=== PATIENT | female | born 1990 | race American Indian/Alaskan Native ===

== ENCOUNTER 2018-06-14 21:01 | Emergency (ER) | payer MEDICAID ==
[2018-06-14 21:08] VITALS: O2SAT 98
[2018-06-14] MEDS ORDERED: Sodium Chloride 0.9% 1,000 ML IV ONE (21:21)
[2018-06-14] MEDS ORDERED: Iodixanol 320 MG/ML 100 ML BOTTLE IV ONE (21:30)
[2018-06-14 21:42] LABS: BASO # 0.1 K/uL (0.0-0.2); BASO % 0.6 % (0.0-2.0); EOS # 0.2 K/uL (0.0-0.7); EOS % 2.3 % (0.0-4.0); HEMOGLOBIN 12.3 g/dL (11.0-16.0); LYMPH # 2.2 K/uL (1.0-4.3); LYMPH % 22.2 % (20.0-40.0); MEAN CORPUSCULAR HEMOGLOBIN 31.2 pg (27.0-31.0); MEAN CORPUSCULAR HGB CONC 34.3 g/dL (33.0-37.0); MEAN PLATELET VOLUME 7.1 fL (7.2-11.7); MONO # 0.5 K/uL (0.0-0.8); MONO % 5.5 % (0.0-10.0); NEUT # 6.8 K/uL (1.8-7.0); NEUT % 69.4 % (50.0-75.0); NRBC % 0.1 % (0.0-2.0); RBC 3.95 Mil/uL (3.80-5.20); RED CELL DISTRIBUTION WIDTH 14.1 % (11.5-14.5); WHITE BLOOD COUNT 9.8 K/uL (4.8-10.8)
[2018-06-14] MEDS ORDERED: Sodium Chloride 0.9% 1,000 ML ONE (21:43)
[2018-06-14 21:47] LABS: SQUAMOUS EPITHIAL 3 /hpf (0-5); URINE BACTERIA RARE (<OCC); URINE BILIRUBIN NEGATIVE (NEGATIVE); URINE BLOOD NEGATIVE (NEGATIVE); URINE CLARITY Clear (Clear); URINE COLOR Straw (YELLOW); URINE GLUCOSE (UA) NORMAL (Normal); URINE LEUKOCYTE ESTERASE TRACE Leu/uL (Negative); URINE PROTEIN NEGATIVE (NEGATIVE); URINE UROBILINOGEN NORMAL mg/dL (0.2-1.0)
[2018-06-14 22:11] LABS: ALB/GLOB RATIO 1.4 (1.0-2.1); ALBUMIN 4.2 g/dL (3.5-5.0); ALT/SGPT 13 U/L (9-52); AMYLASE 118 U/L (30-110); AST/SGOT 27 U/L (14-36); BLOOD UREA NITROGEN 18 mg/dL (7-17); CALCIUM 9.5 mg/dl (8.6-10.4); GFR NON-AFRICAN AMERICAN > 60; LIPASE 42 U/L (23-300)
[2018-06-15 00:01] VITALS: BP 112/70; PULSE 91; RESP 18; TEMP 98.1
--- NOTE | 2018-06-15 04:34 | C.PDOC ---
History Of Present Illness 28-year-old female presents to the ED for evaluation of abdominal pain which began last night. Patient states that she drank " a lot." She also reports some nausea, and states she noted some blood tinged in her vomitus. Patient denies fever, chills, or blood in stool. Time Seen by Provider: 06/14/18 21:10 Chief Complaint (Nursing): GI Problem History Per: Patient History/Exam Limitations: no limitations Onset/Duration Of Symptoms: Hrs Current Symptoms Are (Timing): Still Present Location Of Pain/Discomfort: Epigastric Quality Of Discomfort: "Pain" Associated Symptoms: Nausea, Vomiting. denies: Fever, Chills, Diarrhea Past Medical History Reviewed: Historical Data, Nursing Documentation, Vital Signs Vital Signs: Last Vital Signs Temp 98.1 F 06/14/18 23:55 Pulse 91 H 06/14/18 23:55 Resp 18 06/14/18 23:55 BP 112/70 06/14/18 23:55 Pulse Ox 98 06/14/18 21:06 - Medical History PMH: Asthma Surgical History: No Surg Hx Family History: States: Unknown Family Hx - Social History Hx Alcohol Use: Yes Hx Substance Use: No Review Of Systems Constitutional: Negative for: Fever, Chills Gastrointestinal: Positive for: Nausea, Vomiting, Abdominal Pain. Negative for: Diarrhea Physical Exam - Physical Exam Appears: Non-toxic, No Acute Distress Skin: Normal Color, Warm, Dry Head: Atraumatic, Normacephalic Eye(s): bilateral: Normal Inspection Oral Mucosa: Moist Neck: Supple Chest: Symmetrical, No Deformity, No Tenderness Cardiovascular: Rhythm Regular, No Murmur Respiratory: Normal Breath Sounds, No Rales, No Rhonchi, No Wheezing Gastrointestinal/Abdominal: Soft, Tenderness (epigastric ), No Guarding, No Rebound Extremity: Normal ROM, Capillary Refill (less than 2 seconds ) Neurological/Psych: Oriented x3, Normal Speech, Normal Cognition ED Course And Treatment - Laboratory Results Result Diagrams: 06/14/18 21:33 06/14/18 21:33 Lab Results: Total Bilirubin 0.9 mg/dL (0.2-1.3) 06/14/18 21:33 AST 27 U/L (14-36) 06/14/18 21:33 ALT 13 U/L (9-52) 06/14/18 21:33 Alkaline Phosphatase 53 U/L (38-126) 06/14/18 21:33 Total Protein 7.2 g/dL (6.3-8.3) 06/14/18 21:33 Albumin 4.2 g/dL (3.5-5.0) 06/14/18 21:33 Globulin 3.0 gm/dL (2.2-3.9) 06/14/18 21:33 Albumin/Globulin Ratio 1.4 (1.0-2.1) 06/14/18 21:33 Amylase 118 U/L (30-110) H 06/14/18 21:33 Lipase 42 U/L (23-300) 06/14/18 21:33 Urine Color Straw (YELLOW) 06/14/18 21:33 Urine Clarity Clear (Clear) 06/14/18 21:33 Urine pH 8.0 (5.0-8.0) 06/14/18 21:33 Ur Specific [place] 1.003 (1.003-1.030) 06/14/18 21:33 Urine Protein Negative mg/dL (NEGATIVE) 06/14/18 21:33 Urine Glucose (UA) Normal mg/dL (Normal) 06/14/18 21:33 Urine Ketones Negative mg/dL (NEGATIVE) 06/14/18 21:33 Urine Blood Negative (NEGATIVE) 06/14/18 21:33 Urine Nitrate Negative (NEGATIVE) 06/14/18 21:33 Urine Bilirubin Negative (NEGATIVE) 06/14/18 21:33 Urine Urobilinogen Normal mg/dL (0.2-1.0) 06/14/18 21:33 Ur Leukocyte Esterase Trace Tamara/uL (Negative) 06/14/18 21:33 Urine WBC (Auto) 3 /hpf (0-5) 06/14/18 21:33 Urine RBC (Auto) < 1 /hpf (0-3) 06/14/18 21:33 Ur Squamous Epith Cells 3 /hpf (0-5) 06/14/18 21:33 Urine Bacteria Rare (<OCC) 06/14/18 21:33 O2 Sat by Pulse Oximetry: 98 (on RA) Pulse Ox Interpretation: Normal - CT Scan/US CT A/P Other Rad Studies (CT/US): Read By Radiologist, Radiology Report Reviewed CT/US Interpretation: EXAM: CT Abdomen and Pelvis with IV contrast. CLINICAL HISTORY: Upper abd pain. TECHNIQUE: Axial computed tomography images of the abdomen and pelvis with intravenous contrast. 0.00 mGy-cm. CONTRAST: With; 100MLS VISI 320. COMPARISON: None provided. FINDINGS: LUNG BASES: The lung bases appear clear. No pleural effusions are seen. LIVER: Unremarkable. GALLBLADDER AND BILE DUCTS: The gallbladder appears within normal limits. No radioopaque gallstones are seen. No biliary ductal dilatation is evident. PANCREAS: Unremarkable. SPLEEN: Unremarkable. ADRENAL GLANDS: Unremarkable. KIDNEYS, URETERS, AND BLADDER: The kidneys appear within normal limits. There is no hydronephrosis or hydroureter. No urinary calculi are seen. The urinary bladder appeared normal in size and configuration. STOMACH AND BOWEL: Unremarkable appearance of the stomach. There is mild mucosal wall thickening of the ileal small intestinal tract with fluid in the lumen thought compatible with ileitis. Infectious or inflammatory etiologies are thought most likely.No evidence of bowel obstruction. No evidence suggesting colitis. APPENDIX: No evidence of acute appendicitis on CT examination. PERITONEUM: No free fluid. No free air. LYMPH NODES: No lymphadenopathy is evident. REPRODUCTIVE: Bilateral parauterine varices are noted; more prevalent on the right. The possibility of pelvic congestion syndrome should be considered. VASCULATURE: No evidence of abdominal aortic aneurysm. SOFT TISSUES: In the posterior buttocks region there is subcutaneous stranding and numerous nodules scattered throughout the subcutaneous soft tissues. These findings could be compatible with cellulitis and pilomatricomas, or possibly granulomata. BONES: No aggressive appearing osseous lesion. No acute osseous pathology evident. IMPRESSION: 1. Evidence of ileitis. 2. 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 The possibility of pelvic congestion syndrome should be considered. 3. Subcutaneous stranding of the buttocks bilaterally with numerous tiny nodules scattered throughout this region. Findings could be c ompatible with cellulitis and pilomatricomas, or possibly granulomata. Medical Decision Making Medical Decision Making: Bloodwork, urinalysis, CT A/P ordered and reviewed. Pepcid IVP, Zofran IVP and IV Fluids given. On reassessment, patient is resting comfortably, showing no signs of distress and reports an improvement in her symptoms. Patient is stable for discharge and is advised to f/u with her PMD within 1-2 days for further evaluation. Disposition - Disposition Referrals: [facility] [Outside] [facility] [Outside] Disposition: HOME/ ROUTINE Disposition Time: 23:35 Condition: IMPROVED Additional Instructions: PARI LOONEY, thank you for letting us take care of you today. The emergency medical care you received today was directed at your acute symptoms. If you were prescribed any medication, please fill it and take as directed. It may take several days for your symptoms to resolve. Return to the Emergency Department if your symptoms worsen, do not improve, or if you have any other problems. Please contact your doctor or call one of the physicians/clinics you have been referred to that are listed on the Patient Visit Information form that is included in your discharge packet. Bring any paperwork you were given at discharge with you along with any medications you are taking to your follow up visit. Our treatment cannot replace ongoing medical care by a primary care provider outside of the emergency department. Thank you for allowing the [facility] team to be part of your care today. Follow up with our clinic this week for re-evaluation and further management. Prescriptions: Famotidine [Pepcid] 20 mg PO DAILY #14 tab Instructions: Gastritis (DC) Forms: [employer] ([place] Verdean) - Clinical Impression Clinical Impression: Alcoholic gastritis - Scribe Statement The provider has reviewed the documentation as recorded by the Scribe (Marla Allison) Provider Attestation: All medical record entries made by the Scribe were at my direction and personally dictated by me. I have reviewed the chart and agree that the record accurately reflects my personal performance of the history, physical exam, medical decision making, and the department course for this patient. I have also personally directed, reviewed, and agree with the discharge instructions and disposition.
--- NOTE | 2018-06-15 11:29 | CT ---
Date of service: 06/14/2018 PROCEDURE: CT Abdomen and Pelvis with contrast HISTORY: upper abdominal pain COMPARISON: None available. TECHNIQUE: Contrast dose: 100 mL Visipaque 320 IV Radiation dose: Total exam DLP = 730.85 mGy-cm. This CT exam was performed using one or more of the following dose reduction techniques: Automated exposure control, adjustment of the mA and/or kV according to patient size, and/or use of iterative reconstruction technique. FINDINGS: LOWER THORAX: No visible consolidation, pleural effusion, or pneumothorax. LIVER: Unremarkable. GALLBLADDER AND BILE DUCTS: Unremarkable. PANCREAS: Unremarkable. SPLEEN: Unremarkable. ADRENALS: Unremarkable. KIDNEYS AND URETERS: The kidneys enhance symmetrically. No hydronephrosis or obstructing calculus identified. VASCULATURE: No aortic aneurysm. No atherosclerotic calcification or mural plaque present. BOWEL: Stomach is nondistended. Lack of oral contrast limits evaluation for bowel pathology. Bowel loops appear within normal limits of caliber without evidence of obstruction. APPENDIX: No secondary signs of acute appendicitis. PERITONEUM: No significant free fluid. No definite free air. LYMPH NODES: No bulky adenopathy identified. BLADDER: Mildly thick-walled urinary bladder. REPRODUCTIVE: The uterus is present. Prominent pelvic vasculature, right greater than left; correlate clinically for possibility of pelvic congestion syndrome. BONES: No acute osseous abnormality is detected. OTHER FINDINGS: Subcutaneous soft tissue nodules of the buttocks. IMPRESSION: Prominent pelvic vasculature, right greater than left; correlate clinically for possibility of pelvic congestion syndrome. Subcutaneous soft tissue nodules bilateral buttocks. Preliminary impression was provided by [employer].
== END 2018-06-15 00:02 | disposition home or self-care (01) ==
LOC: C.ER 21:01
DX: K29.20 Alcoholic gastritis without bleeding (principal)
CPT/HCPCS: 74177; 80053; 81001; 81025; 82150; 83690; 85025; 96361; 96374; 96375; 99284; J2405; J7030; Q9967

== ENCOUNTER 2018-06-15 09:09 | Inpatient (IN) | payer MEDICAID ==
--- NOTE | 2018-06-15 09:18 | C.PDOC ---
Time Seen by Provider: 06/15/18 09:16 Past Medical History - Medical History PMH: Asthma Family History: States: Unknown Family Hx - Social History Hx Alcohol Use: Yes Hx Substance Use: No Progress - Data Reviewed Data Reviewed: Old records
[2018-06-15 09:26] VITALS: BMI 24.2
[2018-06-15] MEDS ORDERED: Sodium Chloride 0.9% 2,000 ML IV ONE (09:32)
--- NOTE | 2018-06-15 09:32 | C.PDOC ---
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 SP CHED EVAL DC 2330 06/14. PS FEELING FINE UNTIL AWOKE THIS MORNING. SX WORSE WHEN STANDS UP OR SITS UP. NEAR SYNCOPE. NO ASSOC NV, ABD PAIN. SP LABS urinalysis, CT A/P. NEG PREG. EXAM MILD DIST SBP 96. REPRODUCIBLE DIZZY W POSITION CHANGE HEENT NO NYSTAGMUS ANICERTIC ABD SOFT NT ND NO R/G NEURO NO FOCAL DEF REMAINDER NEG Time Seen by Provider: 06/15/18 09:16 Chief Complaint (Nursing): Dizziness/Lightheaded History Per: Patient History/Exam Limitations: no limitations Onset/Duration Of Symptoms: Hrs Current Symptoms Are (Timing): Still Present Severity: Moderate Past Medical History Reviewed: Historical Data, Nursing Documentation, Vital Signs - Medical History PMH: Asthma Surgical History: Family History: States: No Known Family Hx - Social History Hx Alcohol Use: Yes Hx Substance Use: No Review Of Systems Except As Marked, All Systems Reviewed And Found Negative. Constitutional: Negative for: Fever, Chills Cardiovascular: Negative for: Chest Pain Respiratory: Negative for: Shortness of Breath Gastrointestinal: Negative for: Nausea, Vomiting, Abdominal Pain Neurological: Positive for: Dizziness Physical Exam - Physical Exam Appears: Other (mild distress, SBP 96, reproducible dizziness with position change) Skin: Normal Color, Warm, Dry Head: Atraumatic, Normacephalic Eye(s): bilateral: Normal Inspection, Other (anicertic, no nystagmus) Nose: Normal Oral Mucosa: Moist Cardiovascular: Rhythm Regular Respiratory: Other (NARD) Gastrointestinal/Abdominal: Soft, No Tenderness, No Guarding, No Rebound Neurological/Psych: Other (no focal deficits) ED Course And Treatment - Laboratory Results Result Diagrams: 06/15/18 13:25 ECG: Interpreted By Me ECG Rhythm: Sinus Rhythm ECG Interpretation: Normal Rate From EC O2 Sat by Pulse Oximetry: 99 Pulse Ox Interpretation: Normal Progress - Re-Evaluation Re-evaluation Note: 06/15/18 12:24 RECUR NV. +BM X 1, BLACK. "BLACK LIKE WHEN I WAS VOMITING YESTERDAY". NO ABD, RECTAL PAIN. DENIES RECENT PEPTOBISMOL, IRON USE. ABD NEG. NO HEMORRHOIDS, GROSS BRB. GUIAC PENDING 06/15/18 14:02 NO RECUR GI BLEED SINCE PRIOR EVAL. SBP 96. NO PAIN D/W DR PERRY [employer]EL[employer] WILL ADMIT. WILL TRANSFUSE - Data Reviewed Data Reviewed: Lab, EKG, Old records - Critical Care Citical Care: Excluding Proc Time Critical Care Time: 60 minutes Medical Decision Making Medical Decision Making: Plan: --Antivert PO --IV Fluids Disposition Counseled Patient/Family Regarding: Studies Performed, Diagnosis - Disposition Disposition: HOSPITALIZED Disposition Time: 14:03 Condition: SERIOUS - POA Present On Arrival: None - Clinical Impression Clinical Impression: Near syncope, GI bleed, Symptomatic anemia - Scribe Statement The provider has reviewed the documentation as recorded by the Charuibe Shine Mendez Provider Attestation: All medical record entries made by the Scribe were at my direction and personally dictated by me. I have reviewed the chart and agree that the record accurately reflects my personal performance of the history, physical exam, medical decision making, and the department course for this patient. I have also personally directed, reviewed, and agree with the discharge instructions and disposition.
[2018-06-15 13:33] LABS: LYMPH # 1.2 K/uL (1.0-4.3); MONO # 0.3 K/uL (0.0-0.8); RBC 2.23 Mil/uL (3.80-5.20); RED CELL DISTRIBUTION WIDTH 13.8 % (11.5-14.5)
[2018-06-15 13:39] LABS: BASO % 0.4 % (0.0-2.0); EOS % 0.4 % (0.0-4.0); LYMPH % 16.1 % (20.0-40.0); MEAN CORPUSCULAR HEMOGLOBIN 31.8 pg (27.0-31.0); MEAN CORPUSCULAR HGB CONC 33.8 g/dL (33.0-37.0); MEAN PLATELET VOLUME 7.6 fL (7.2-11.7); MONO % 3.8 % (0.0-10.0); NEUT # 6.1 K/uL (1.8-7.0); NEUT % 79.3 % (50.0-75.0); WHITE BLOOD COUNT 7.7 K/uL (4.8-10.8)
[2018-06-15 13:47] LABS: HEMOGLOBIN 7.1 g/dL (11.0-16.0); MEAN CELL VOLUME 94.2 fL (81.0-99.0)
--- NOTE | 2018-06-15 15:14 | CP.PCM.HP ---
History of Present Illness - History of Present Illness History of Present Illness: Patient seen and examined at approximately 15:15PM in ER Bed 2. Patient is a FULL CODE status at this time. Patient's emergency contacts are her sisters: Kerri Simmons [phone] as well as Nury Esquivel [phone]. CC: Feeling lightheaded HPI: 28 year old female with past medical history significant for asthma presents with complaints of feeling lightheaded and general malaise. Patient initially presented to the ER one night previously with complaints of hematemesis the afternoon prior. Patient states that she drank 5-6 shots of Adonay High Friday night (two nights prior) and felt fine afterwards. Patient states that she normally drinks this amount- and sometimes more without adverse effects. She states that the following day (Friday), she woke up around 11:30am with the urge to vomit. She states that she did and then noticed bright red blood. She states that this continued through the afternoon with the color of the contents worsening- becoming coffee ground in color. This was witnessed by the father of her child who lives with her. Patient states that she was feeling increasingly worse which led her to the ER the first time (one night ago). Patient was administered antiemetics, fluids and pepcid with improvement. While there, patient had a workup with limited findings. With noted improvement, she was discharged home. Patient states that she returned around 8am this morning because she felt incredibly lightheaded this morning while on her way to use the bathroom. Patient states that the hematemesis ceased altogether. EMS services were notified and patient was brought to the ER. While in the ER, patient's labs were rechecked with a noted drop in her Hgb. Patient admits to nausea, headaches and lightheadedness. Patient denies current vomiting, abdominal pain, chest pain, palpitations, or paresthesias at this time. Past Medical History: Asthma, Gastritis secondary to increased NSAID use several years ago Past Surgical history: section July 2017 Family History: Mom has asthma and HTN; Uncle has DM Medications: Albuterol PRN Social History: Smokes 7 cigarettes- for the past 4 years; Drinks 1 pint a week; Denies illicit drug use. Does not currently work Allergies- Morphine and codeine result in anaphylaxis. Patient states that she has allergies to other medications however she cannot specifically recall which medications. She admits to pruritus. She denies anaphylaxis occurring with these other medications. Present on Admission - Present on Admission Any Indicators Present on Admission: No Review of Systems - Constitutional Constitutional: Headache, Weakness. absent: Increased Appetite - EENT Eyes: absent: Change in Vision, Pain Ears: absent: Ear Discharge, Ear Pain - Cardiovascular Cardiovascular: absent: Chest Pain, Chest Pain at Rest, Dyspnea - Respiratory Respiratory: absent: Cough, Dyspnea - Gastrointestinal Gastrointestinal: Change in Stool Character, Melena, Nausea. absent: Bloating, Diarrhea, Vomiting - Genitourinary Genitourinary: absent: Change in Urinary Stream, Difficulty Urinating, Dysuria, Urinary Frequency - Reproductive: Female Reproductive:Female: Normal Menses. absent: Amenorrhea, Heavy Menses - Musculoskeletal Musculoskeletal: absent: Back Pain, Stiffness, Tingling - Integumentary Integumentary: absent: Changing Lesions, Wounds - Neurological Neurological: Headaches, Weakness - Psychiatric Psychiatric: absent: Anxiety, Confusion, Depression - Hematologic/Lymphatic Hematologic: absent: Easy Bleeding, Easy Bruising, Lymphadenopathy Past Patient History - Infectious Disease Hx of Infectious Diseases: None - Past Social History Smoking Status: Light Smoker < 10 Cigarettes Daily Alcohol: Social Drugs: Denies Home Situation {Lives}: With Family, Friends - PULMONARY Hx Asthma: Yes - PSYCHIATRIC Hx Substance Use: No - SURGICAL HISTORY Hx Section: Yes - ANESTHESIA Hx Anesthesia: Yes Hx Anesthesia Reactions: No Meds Allergies/Adverse Reactions: Allergies Allergy/AdvReac Type Severity Reaction Status Date / Time codeine Allergy Verified 06/15/18 09:23 morphine Allergy Verified 06/15/18 09:23 Physical Exam - Constitutional Appears: Non-toxic, No Acute Distress - Head Exam Head Exam: ATRAUMATIC, NORMAL INSPECTION, NORMOCEPHALIC - Eye Exam Eye Exam: EOMI, Normal appearance, PERRL. absent: Scleral icterus Pupil Exam: NORMAL ACCOMODATION, PERRL - ENT Exam ENT Exam: Mucous Membranes Moist, Normal Exam - Neck Exam Neck exam: Positive for: Full Rom. Negative for: Lymphadenopathy - Respiratory Exam Respiratory Exam: NORMAL BREATHING PATTERN. absent: Rales, Wheezes - Cardiovascular Exam Cardiovascular Exam: +S1, +S2. absent: Systolic Murmur - GI/Abdominal Exam GI & Abdominal Exam: Normal Bowel Sounds, Soft. absent: Diminished Bowel Sounds, Distended, Firm, Guarding, Pulsatile Mass, Rebound, Rigid, Tenderness - Rectal Exam Rectal Exam: NORMAL INSPECTION. absent: Hemorrhoids - Expanded Rectal Exam Expanded Expanded Rectal Exam: NORMAL RECTAL TONE (No stool noted. No visible blood noted.) - Extremities Exam Extremities exam: Positive for: full ROM, normal capillary refill, pedal pulses present. Negative for: pedal edema Additional comments: pallor noted on the volar surface of palms - Back Exam Back exam: FULL ROM - Neurological Exam Neurological exam: Alert, Oriented x3 - Psychiatric Exam Psychiatric exam: Normal Affect, Normal Mood - Skin Skin Exam: Dry, Pallor (volar surface of palms), Warm Results - Vital Signs Recent Vital Signs: Last Vital Signs Temp 99.2 F 06/15/18 14:54 Pulse 80 06/15/18 14:54 Resp 16 06/15/18 14:54 BP 105/55 L 06/15/18 14:54 Pulse Ox 99 06/15/18 15:04 - Labs Result Diagrams: 06/15/18 20:50 Labs: Laboratory Results - last 24 hr 06/15/18 06/15/18 06/15/18 12:24 13:25 14:16 WBC 7.7 RBC 2.23 L Hgb 7.1 L D Hct 21.0 L MCV 94.2 D MCH 31.8 H MCHC 33.8 RDW 13.8 Plt Count 189 MPV 7.6 Neut % (Auto) 79.3 H Lymph % (Auto) 16.1 L [place] % (Auto) 3.8 Eos % (Auto) 0.4 Baso % (Auto) 0.4 Neut # (Auto) 6.1 Lymph # (Auto) 1.2 [place] # (Auto) 0.3 Eos # (Auto) 0.0 Baso # (Auto) 0.0 Stool Occult Blood Positive H Blood Type O POSITIVE Antibody Screen Negative Assessment & Plan (1) GI bleed Assessment and Plan: Several bouts of hematemesis as well as coffee ground black stools Resulting in symptomatic anemia Drop in Hgb from 12.3 to 7.1 Positive stool occult No further bouts of hematemesis. Transfuse 2 units of PRBC Check CBC at 20:00 and then in AM Monitor for adverse effects or transfusion reaction in light of allergies. Will hold off on starting protonix; however consider beginning in the AM pending CBC and GI recommendations Consult to GI, Dr. Carreon- F/U recommendations Once stabilized, patient will benefit from endoscopy Status: Acute (2) Near syncope Assessment and Plan: Likely secondary to repeated bouts of hematemesis as well as episode of melena resulting in symptomatic anemia Patient with drop in Hgb from 12.3 to 7.1. To transfuse x 2 units PRBC Recheck CBC Q4H (following transfusions) Fall Risk protocol Monitor Status: Acute (3) Prophylactic measure Assessment and Plan: SCDs PPI of consideration for AM Status: Acute - Assessment and Plan (Free Text) Assessment: Discussed with attending, Dr. Nam. Orders and management per Dr. Nam.
[2018-06-15 18:05] LABS: INR 1.1; PROTHROMBIN TIME 12.2 SECONDS (9.7-12.2)
[2018-06-15] MEDS ORDERED: DiphenhydrAMINE 50 mg/ml Inj IVP ONE ×2 (19:36→22:30)
[2018-06-15 20:58] LABS: BASO % 0.5 % (0.0-2.0); EOS # 0.1 K/uL (0.0-0.7); HEMOGLOBIN 8.7 g/dL (11.0-16.0); LYMPH # 2.5 K/uL (1.0-4.3); LYMPH % 29.3 % (20.0-40.0); MEAN CELL VOLUME 92.4 fL (81.0-99.0); MEAN CORPUSCULAR HEMOGLOBIN 30.9 pg (27.0-31.0); MEAN CORPUSCULAR HGB CONC 33.4 g/dL (33.0-37.0); MEAN PLATELET VOLUME 7.3 fL (7.2-11.7); MONO # 0.5 K/uL (0.0-0.8); MONO % 5.9 % (0.0-10.0); NEUT # 5.4 K/uL (1.8-7.0); NEUT % 63.3 % (50.0-75.0); RBC 2.83 Mil/uL (3.80-5.20); RED CELL DISTRIBUTION WIDTH 15.1 % (11.5-14.5); WHITE BLOOD COUNT 8.6 K/uL (4.8-10.8)
[2018-06-15] MEDS ORDERED: MethylPREDNISolone 40 mg Vial IVP STA (23:00)
[2018-06-16 06:30] LABS: BASO % 0.1 % (0.0-2.0); HEMOGLOBIN 10.5 g/dL (11.0-16.0); LYMPH # 0.6 K/uL (1.0-4.3); LYMPH % 7.9 % (20.0-40.0); MEAN CORPUSCULAR HGB CONC 33.7 g/dL (33.0-37.0); MEAN PLATELET VOLUME 7.4 fL (7.2-11.7); MONO % 0.4 % (0.0-10.0); NEUT # 7.4 K/uL (1.8-7.0); NEUT % 91.6 % (50.0-75.0); PLATELET COUNT 200 K/uL (130-400); RBC 3.37 Mil/uL (3.80-5.20); RED CELL DISTRIBUTION WIDTH 14.9 % (11.5-14.5)
[2018-06-16 07:31] LABS: ALB/GLOB RATIO 1.4 (1.0-2.1); ALBUMIN 3.4 g/dL (3.5-5.0); ALT/SGPT 11 U/L (9-52); AST/SGOT 24 U/L (14-36); BLOOD UREA NITROGEN 16 mg/dL (7-17); CALCIUM 8.9 mg/dl (8.6-10.4); GFR NON-AFRICAN AMERICAN > 60
[2018-06-16 08:57] LABS: LYMPHOCYTE 10 % (20-40); MONOCYTE 2 % (0-10); NEUTROPHIL 93 % (50-75); TOTAL CELLS COUNTED 100
[2018-06-16 08:58] LABS: ANISOCYTOSIS SLIGHT; HYPOCHROMIC SLIGHT; PLATELET ESTIMATE NORMAL (NORMAL); POIKILOCYTOSIS SLIGHT
--- NOTE | 2018-06-16 11:15 | CP.PCM.PCO ---
Subjective - Physician Review Subjective (Free Text): 06/16/18 11:12 PGY6 GI Fellow Note Patient was seen and examined prior to scheduled procedure this morning. Patient was brought to endoscopy for EGD but serum hCG noted to be positive and thus procedure was cancelled. Patient states she has an on 05/10/18 but cannot provide name of clinic/information of clinic in order to confirm details. Offered to perform EGD with only local sedation of the pharnyx/throat but patient will only perform EGD if performed with deep sedation (propofol). As such, the procedure will be cancelled. Discussed with anesthesia (Dr Chaudhari), GI attending (Lauri) and patient.
--- NOTE | 2018-06-16 12:16 | CP.PCM.PN ---
Subjective - Date & Time of Evaluation Date of Evaluation: 06/16/18 Time of Evaluation: 09:00 - Subjective Subjective: PGY-[address] Nam service Patient is seen and examined at bedside. Patient states has not had a new episode of bloody emesis. patient has not had bowel movement yet and does not know if she continues having blood in BM. Patient states feeling a gnawing pain in epigastric area, denies fever, chills, chest pain, sob, n/v or urinary complaints. Patient mentioned today had a termination of on May 10, patient had two months of conception. Previously, patient did not recall had as patient was overwhelmed with personal issues, patient states had her period may 29. Patient B-HCG done prior to endoscopy was elevated, patient did not wanted to do endoscopy with local sedation, EGD was cancelled at this time. Objective - Vital Signs/Intake and Output Vital Signs (last 24 hours): Temp Pulse Resp BP Pulse Ox 98 F 79 20 107/63 97 06/16/18 08:05 06/16/18 08:05 06/16/18 08:05 06/16/18 08:05 06/16/18 08:05 Intake and Output: 06/16/18 06/16/18 06:59 18:59 Intake Total 410 Balance 410 - Medications Medications: Current Medications Ondansetron HCl (Zofran Inj) 4 mg IVP Q6H PRN PRN Reason: Nausea/Vomiting Pantoprazole Sodium (Protonix Inj) 40 mg IVP Q12H MARYANA Last Admin: 06/16/18 06:50 Dose: 40 mg - Labs Labs: 06/16/18 06:19 06/16/18 06:19 PT 12.2 SECONDS (9.7-12.2) 06/15/18 17:50 INR 1.1 06/15/18 17:50 APTT 22 SECONDS (21-34) 06/15/18 17:50 - Constitutional Appears: Non-toxic, No Acute Distress - Head Exam Head Exam: ATRAUMATIC, NORMAL INSPECTION, NORMOCEPHALIC - Eye Exam Eye Exam: EOMI, Normal appearance - ENT Exam ENT Exam: Mucous Membranes Moist, Normal Exam - Neck Exam Neck Exam: Normal Inspection - Respiratory Exam Respiratory Exam: Clear to Ausculation Bilateral, NORMAL BREATHING PATTERN - Cardiovascular Exam Cardiovascular Exam: REGULAR RHYTHM - GI/Abdominal Exam GI & Abdominal Exam: Soft. absent: Tenderness - Extremities Exam Extremities Exam: Full ROM - Back Exam Back Exam: NORMAL INSPECTION - Neurological Exam Neurological Exam: Alert, Awake - Psychiatric Exam Psychiatric exam: Normal Affect, Normal Mood - Skin Skin Exam: Dry, Normal Color, Warm Assessment and Plan - Assessment and Plan (Free Text) Plan: GI bleed Positive stool occult Hgb on admission 7.1 2 PRBCs given - Hgb post transfusion 8.7 Patient complained of face swelling - benadryl and solumedrol given overnight this morning Hbg 10.5 no more hematemesis GI, Dr. Carreon-EGD planned today - Patient taken for procedure, however B HCG positive (121.80) and procedure cancelled as patient to receive deep sedation with propofol, patient given option to do procedure with light sedation, however, patient refused. U/S pelvis and repeat B HCG in am to confirm possible - will follow results Start full liquid diet CBC in am to monitor H/H Protonix 40 IVP Q12H Zofran 4mg IVP Q6H PRN for nausea Elevated B-HCG, serum Possible retained products of conception vs new Patient had termination of (possible D&E) May 10 done at [facility] in [place], [place] ([phone]) reports having period 05/29 BHCG 06/16 - 121.80 Pelvic US 06/16 - Heterogeneous apparance uterus, endometrial vascularity raises concerns for retained products of conception. Repeat B- HCG in am to look for downtrending level. AIRCRAFT LAY OUT WORKER consult - Dr Alvarado - help is appreciated Prophylactic measure SCDs Protonix 40 IVP Q12H Full liquid diet - NPO after midnight for possible endoscopy Dispo: Will follow up BHCG levels to confirm . Will follow with GI for possibility of doing endoscopy if level trending down. Plan d/w Dr Cyril Hernandez, PGY-1
--- NOTE | 2018-06-16 15:08 | US ---
Date of service: 06/16/2018 Indication: Elevated b HCG, recent termination Comparison: None available Technique: Real-time transabdominal pelvic ultrasound was performed. In addition a transvaginal pelvic ultrasound was necessary to better depict pelvic anatomy. Findings: Uterus measures approximately 9.5 x 4.7 x 6 1 cm. Anteverted. Heterogeneous appearance of the endometrium which measures approximately 1.5 cm. Evidence of endometrial vascularity. Cervix length measures approximately 2.7 cm. The right ovary measures 2.8 x 2.0 x 2.8 cm. The left ovary measures 3.4 x 2.3 x 2.5 cm. Blood flow was demonstrated to both ovaries. Impression: Heterogeneous appearance of the endometrium. Evidence of endometrial vascularity raises concern for retained products of conception. Correlate clinically.
--- NOTE | 2018-06-17 07:24 | CP.PCM.PN ---
Subjective - Date & Time of Evaluation Date of Evaluation: 06/17/18 Time of Evaluation: 09:00 - Subjective Subjective: Medicine progress note for Dr. Nam Patient seen and examined at bedside. Patient reports some abdominal discomfort with occasional radiation to back. Denies N/V, constipation, diarrhea, fevers, chills. Patient reports performed on 05/11 via procedure @ [facility] in [place] Tele [phone]. Patient had no follow up care. Patient did not have EGD performed yesterday as HCG + and denied light sedation. Objective - Vital Signs/Intake and Output Vital Signs (last 24 hours): Temp Pulse Resp BP Pulse Ox 98 F 79 20 104/61 98 06/17/18 00:00 06/17/18 00:00 06/17/18 00:00 06/17/18 00:00 06/17/18 00:00 - Medications Medications: Current Medications Ondansetron HCl (Zofran Inj) 4 mg IVP Q6H PRN PRN Reason: Nausea/Vomiting Pantoprazole Sodium (Protonix Inj) 40 mg IVP Q12H MARYANA Last Admin: 06/17/18 06:30 Dose: 40 mg - Labs Labs: 06/16/18 06:19 06/16/18 06:19 PT 12.2 SECONDS (9.7-12.2) 06/15/18 17:50 INR 1.1 06/15/18 17:50 APTT 22 SECONDS (21-34) 06/15/18 17:50 - Constitutional Appears: Non-toxic, No Acute Distress - Head Exam Head Exam: NORMAL INSPECTION - Eye Exam Eye Exam: EOMI, Normal appearance - ENT Exam ENT Exam: Mucous Membranes Moist - Respiratory Exam Respiratory Exam: Clear to Ausculation Bilateral, NORMAL BREATHING PATTERN. absent: Rales, Rhonchi, Wheezes - Cardiovascular Exam Cardiovascular Exam: +S1, +S2 - GI/Abdominal Exam GI & Abdominal Exam: Soft, Normal Bowel Sounds - Extremities Exam Extremities Exam: Full ROM, Normal Inspection. absent: Calf Tenderness, Pedal Edema - Back Exam Back Exam: absent: CVA tenderness (L), CVA tenderness (R) - Neurological Exam Neurological Exam: Alert, Awake, Oriented x3 - Psychiatric Exam Psychiatric exam: Normal Affect, Normal Mood - Skin Skin Exam: Dry, Intact, Normal Color, Warm Assessment and Plan - Assessment and Plan (Free Text) Assessment: 28 y F w/ no PMhx presents for abd pain, low hgb s/p hemetamesis & hematochezia X 2 days, EGD postponed 2/ + hcg, currently downtrending, per OBGYN not likely . Will repeat CBC today since hgb drop, will transfuse Prn w/ plan for EGD in AM by GI. Pt s/p elective 05/11 @ [facility] in [place]. Plan: GI bleed - Positive stool occult - Hgb 7.1 on admission; X 2 prbc hgb 10s - repeat CBC @ 4pm 06/17, transfuse if hgb less than 8 - premedicate w/ benydral & tylenol - f/u GI recs - EGD postponed on 06/16 due to elevated beta hCG & pt refused light sedation - EGD 06/18 pending obgyn clearance -c/w Protonix 40 IVP Q12H -c/w Zofran 4mg IVP Q6H PRN for nausea Elevated B-HCG, serum Possible retained products of conception vs new -Patient had termination of (possible D&E) May 10 done at [facility] in [place], [place] ([phone]) -reports having period 05/29 -BHCG 121 -> 90s -Pelvic US 06/16 - Heterogeneous appearance uterus, endometrial vascularity raises concerns for retained products of conception. -ACADEMIC SUPPORT ASSISTANT consult - Dr Alvarado - help is appreciated - nicole dunbar pregnacny - metherigine 0.2 TID - provide 3 days upon discharge Prophylactic measure -SCDs -Protonix 40 IVP Q12H -Full liquid diet - NPO after midnight for possible endoscopy Dispo: GI to perform EGD in AM pending OBGYN clearance.
[2018-06-17 07:26] LABS: BASO % 0.4 % (0.0-2.0); EOS # 0.1 K/uL (0.0-0.7); EOS % 1.1 % (0.0-4.0); HEMOGLOBIN 8.9 g/dL (11.0-16.0); LYMPH # 2.7 K/uL (1.0-4.3); LYMPH % 35.9 % (20.0-40.0); MEAN CELL VOLUME 91.7 fL (81.0-99.0); MEAN CORPUSCULAR HEMOGLOBIN 32.2 pg (27.0-31.0); MEAN CORPUSCULAR HGB CONC 35.2 g/dL (33.0-37.0); MEAN PLATELET VOLUME 7.4 fL (7.2-11.7); MONO # 0.4 K/uL (0.0-0.8); MONO % 5.6 % (0.0-10.0); NEUT # 4.3 K/uL (1.8-7.0); NRBC % 0.1 % (0.0-2.0); RBC 2.74 Mil/uL (3.80-5.20); RED CELL DISTRIBUTION WIDTH 14.7 % (11.5-14.5); WHITE BLOOD COUNT 7.6 K/uL (4.8-10.8)
[2018-06-17 07:49] LABS: ALB/GLOB RATIO 1.4 (1.0-2.1); ALBUMIN 3.1 g/dL (3.5-5.0); ALT/SGPT 18 U/L (9-52); AST/SGOT 17 U/L (14-36); BLOOD UREA NITROGEN 9 mg/dL (7-17); CALCIUM 8.7 mg/dl (8.6-10.4); GFR NON-AFRICAN AMERICAN > 60
[2018-06-17] MEDS ORDERED: Potassium Chloride 20 mEq ER Tab PO ONE ×2 (13:42→15:50)
[2018-06-17] MEDS ORDERED: Potassium Chloride 20 mEq/15 ml LIQ UD PO ONE (16:43)
--- NOTE | 2018-06-17 17:04 | CP.PCM.CON ---
History of Present Illness - History of Present Illness History of Present Illness: Tito Allison DO PGY1 - Internal Medicine Floral Associate - HYDRAULIC PILE HAMMER OPERATOR Consultation for Dr. Alvarado Consult Reason: Vaginal Bleeding/ Retained Products 28F w/ no significant PMH presented with chief complaint of nausea, vomiting, and diarrhea x3 days. Upon evaluation primary team performed TVUS which was concerning for retained products of conception. Patient underwent recent elective at the beginning of may and reports that she has been continuously having bloody vaginal discharge from 05/08 to 05/29. She has had a history of 2 prior elective abortions prior to may and reported that she has had similar bloody discharge. At time of evaluation, patient does not complain of vaginal bleeding/ discharge however reports that she has had "black, and tarry" stool as wella s bloody emesis. Upon ROS: Denies fevers, chills, chest pain, sob, urinary discomfort, weakness, headache, numbness/tingling PMH: Denies PSH: Denies Manager Of Purchasing Hx: FDMLP 03/10, 3 Elective most recent early May, 2 CSection most recent July 2017 ALL: Codeine + Morphine : Swelling/ Anaphylaxis Social: 1/2 ppd, social EtOH, Denies illicit drug use FamHx: Denies Review of Systems - Review of Systems All systems: reviewed and no additional remarkable complaints except Review of Systems: as per HPI Past Patient History - Infectious Disease Hx of Infectious Diseases: None - Past Social History Smoking Status: Light Smoker < 10 Cigarettes Daily Alcohol: Social Drugs: Denies Home Situation {Lives}: With Family, Friends - PULMONARY Hx Asthma: Yes - PSYCHIATRIC Hx Substance Use: No - SURGICAL HISTORY Hx Section: Yes - ANESTHESIA Hx Anesthesia: Yes Hx Anesthesia Reactions: No Meds Allergies/Adverse Reactions: Allergies Allergy/AdvReac Type Severity Reaction Status Date / Time codeine Allergy Verified 06/15/18 09:23 morphine Allergy Verified 06/15/18 09:23 - Medications Medications: Current Medications Methylergonovine Maleate (Methergine) 0.2 mg PO TID REPLACED BY [facility] Ondansetron HCl (Zofran Inj) 4 mg IVP Q6H PRN PRN Reason: Nausea/Vomiting Pantoprazole Sodium (Protonix Inj) 40 mg IVP Q12H REPLACED BY [facility] Last Admin: 06/17/18 06:30 Dose: 40 mg Physical Exam - Constitutional Appears: Well, Non-toxic, No Acute Distress - Head Exam Head Exam: ATRAUMATIC, NORMOCEPHALIC - Eye Exam Eye Exam: EOMI, Normal appearance, PERRL - Respiratory Exam Respiratory Exam: Clear to Auscultation Bilateral, NORMAL BREATHING PATTERN - Cardiovascular Exam Cardiovascular Exam: RRR. absent: Systolic Murmur - GI/Abdominal Exam GI & Abdominal Exam: Normal Bowel Sounds, Tenderness (RLQ) - Extremities Exam Extremities exam: Positive for: normal capillary refill, pedal pulses present - Neurological Exam Neurological exam: Alert, CN II-XII Intact, Oriented x3 - Psychiatric Exam Psychiatric exam: Normal Affect, Normal Mood - Skin Skin Exam: Dry, Intact, Normal Color, Warm Results - Vital Signs Recent Vital Signs: Last Vital Signs Temp 98.2 F 06/17/18 07:00 Pulse 69 06/17/18 12:00 Resp 20 06/17/18 07:00 BP 96/60 L 06/17/18 07:00 Pulse Ox 100 06/17/18 07:00 - Labs Result Diagrams: 06/17/18 17:16 06/17/18 07:12 Labs: Laboratory Results - last 24 hr 06/17/18 06/17/18 07:12 07:12 WBC 7.6 RBC 2.74 L Hgb 8.9 L Hct 25.2 L MCV 91.7 MCH 32.2 H MCHC 35.2 RDW 14.7 H Plt Count 190 MPV 7.4 Neut % (Auto) 57.0 Lymph % (Auto) 35.9 [place] % (Auto) 5.6 Eos % (Auto) 1.1 Baso % (Auto) 0.4 Neut # (Auto) 4.3 Lymph # (Auto) 2.7 [place] # (Auto) 0.4 Eos # (Auto) 0.1 Baso # (Auto) 0.0 Sodium 137 Potassium 3.4 L Chloride 106 Carbon Dioxide 27 Anion Gap 7 L BUN 9 Creatinine 0.8 Est GFR ( Amer) > 60 Est GFR (Non-Af Amer) > 60 Random Glucose 92 Calcium 8.7 Phosphorus 3.5 Magnesium 1.8 Total Bilirubin 0.6 AST 17 ALT 18 Alkaline Phosphatase 34 L Total Protein 5.3 L Albumin 3.1 L Globulin 2.3 Albumin/Globulin Ratio 1.4 Beta HCG, Quant 99.03 Assessment & Plan - Assessment and Plan (Free Text) Assessment: 28 year old female w/ no significant PMH presented with chief complaint of nausea, vomiting, and diarrhea x3 days. Upon evaluation primary team performed TVUS which was concerning for retained products of conception. Beta HCG Quant initially at 122 now to 99. Patient most likely has retained products of conception in setting of recently terminated 1mo ago; Given down trending HCG a new is unlikely Patient also noted to have significantly tender RLQ on palpation during physical exam; Ovaries reported normal on TVUS; Prior CTAP reported as having normal appendix during ED visit 2 days ago. Plan: Probable Retained products of conception: Upon discharge recommend: - Methergine 0.2 PO TID x3 days - analgesia as per primary team Right lower quadrant pain: -to be further evaluated by primary team, G.I. team, patient is scheduled for endoscopy. Patient was seen evaluated examined and discuss with attending physician Dr. Christiano Allison DO PGY1 internal medicine direct marketing intern COMMUNICATIONS COORDINATOR consult note - Date & Time Date: 06/17/18 Time: 17:32
[2018-06-17 17:23] LABS: BASO % 0.3 % (0.0-2.0); EOS # 0.1 K/uL (0.0-0.7); EOS % 1.5 % (0.0-4.0); HEMOGLOBIN 9.1 g/dL (11.0-16.0); LYMPH # 2.4 K/uL (1.0-4.3); MEAN CORPUSCULAR HEMOGLOBIN 31.2 pg (27.0-31.0); MEAN CORPUSCULAR HGB CONC 33.9 g/dL (33.0-37.0); MEAN PLATELET VOLUME 7.3 fL (7.2-11.7); MONO # 0.4 K/uL (0.0-0.8); MONO % 5.3 % (0.0-10.0); NEUT # 3.9 K/uL (1.8-7.0); NEUT % 57.9 % (50.0-75.0); NRBC % 0.1 % (0.0-2.0); RBC 2.92 Mil/uL (3.80-5.20); RED CELL DISTRIBUTION WIDTH 14.7 % (11.5-14.5); WHITE BLOOD COUNT 6.8 K/uL (4.8-10.8)
[2018-06-18 07:34] LABS: BASO % 0.4 % (0.0-2.0); EOS # 0.2 K/uL (0.0-0.7); EOS % 2.6 % (0.0-4.0); HEMOGLOBIN 9.9 g/dL (11.0-16.0); LYMPH # 1.9 K/uL (1.0-4.3); LYMPH % 32.1 % (20.0-40.0); MEAN CELL VOLUME 92.6 fL (81.0-99.0); MEAN CORPUSCULAR HEMOGLOBIN 31.7 pg (27.0-31.0); MEAN CORPUSCULAR HGB CONC 34.3 g/dL (33.0-37.0); MEAN PLATELET VOLUME 7.6 fL (7.2-11.7); MONO # 0.4 K/uL (0.0-0.8); MONO % 7.1 % (0.0-10.0); NEUT # 3.5 K/uL (1.8-7.0); NEUT % 57.8 % (50.0-75.0); RBC 3.11 Mil/uL (3.80-5.20); RED CELL DISTRIBUTION WIDTH 14.6 % (11.5-14.5)
[2018-06-18 07:46] LABS: ALB/GLOB RATIO 1.5 (1.0-2.1); ALBUMIN 3.4 g/dL (3.5-5.0); ALT/SGPT 11 U/L (9-52); AST/SGOT 35 U/L (14-36); BLOOD UREA NITROGEN 6 mg/dL (7-17); CALCIUM 8.9 mg/dl (8.6-10.4); GFR NON-AFRICAN AMERICAN > 60
--- NOTE | 2018-06-18 10:00 | CP.PCM.PN ---
<Tito Allison - Last Filed: 06/18/18 13:26> Subjective - Date & Time of Evaluation Date of Evaluation: 06/18/18 Time of Evaluation: 09:57 - Subjective Subjective: Tito Allison PGY1 Internal medicine electrical engineering intern - progress note for Dr. Roger - ADMINISTRATIVE OFFICE SPECIALIST Patient was seen and evaluated by bedside this morning, no acute events reported overnight. still voicing complaints of vague of abdominal pain at this time, however denies any episodes of vaginal bleeding. She reports she has still not had a bowel movement to date. patient has remained NPO past midnight for scheduled EGD today. Denies any fevers chills chest pain shortness of breath abdominal pain nausea vomiting diarrhea constipation. Objective - Vital Signs/Intake and Output Vital Signs (last 24 hours): Temp Pulse Resp BP Pulse Ox 98.1 F 80 20 99/60 L 96 06/18/18 08:00 06/18/18 08:00 06/18/18 08:00 06/18/18 08:00 06/18/18 08:00 - Medications Medications: Current Medications Methylergonovine Maleate (Methergine) 0.2 mg PO TID [facility] Last Admin: 06/17/18 19:00 Dose: 0.2 mg Ondansetron HCl (Zofran Inj) 4 mg IVP Q6H PRN PRN Reason: Nausea/Vomiting Pantoprazole Sodium (Protonix Inj) 40 mg IVP Q12H [facility] Last Admin: 06/18/18 06:49 Dose: 40 mg - Labs Labs: 06/18/18 07:15 06/18/18 07:15 PT 12.2 SECONDS (9.7-12.2) 06/15/18 17:50 INR 1.1 06/15/18 17:50 APTT 22 SECONDS (21-34) 06/15/18 17:50 - Constitutional Appears: Well, Non-toxic, No Acute Distress - Head Exam Head Exam: ATRAUMATIC, NORMOCEPHALIC - Eye Exam Eye Exam: EOMI, Normal appearance, PERRL - Respiratory Exam Respiratory Exam: Clear to Ausculation Bilateral, NORMAL BREATHING PATTERN - Cardiovascular Exam Cardiovascular Exam: RRR, Murmur - GI/Abdominal Exam GI & Abdominal Exam: Soft, Tenderness (rlq) - Neurological Exam Neurological Exam: Alert, Awake, CN II-XII Intact, Oriented x3 - Psychiatric Exam Psychiatric exam: Normal Affect, Normal Mood - Skin Skin Exam: Dry, Intact, Normal Color, Warm Assessment and Plan - Assessment and Plan (Free Text) Assessment: 28-year-old female with no significant past medical history presented with chief complaint of nausea vomiting and diarrhea times x three days. patient seen and examined this morning as a courtesy follow-up from ADMINISTRATIVE OFFICE SPECIALIST service. Upon evaluation, primary team performed TV US which was concerning for retained products of conception. Beta hCG quantitative was initially 122 downtrend to 99. Patient most likely has retained products of conception in setting a recently terminated via D/C approximately 3 to 4 weeks ago. Given the downtrending hCG a new is less likely; Patient is OK to proceed with EGD. Patient also noted to have significant right lower quadrant tenderness on palpation during physical exam; ovaries reported normal on TV US; prior CTAP reported as having normal appendix during ED visit two days ago. Plan: #1 - Probable retained products of conception vs blood: She is currently stable without any symptomatic complaints of vaginal discharge, vaginal pain, vaginal bleeding upon discharge would recommend the following: - Methergine 0.2 Q6H x4 doses total - Tylenol 1000mg prn pain/ cramping #2 - Right lower quadrant pain: - cable tender to palpation on examination - Further evaluation as per primary team, G.I. team; patient is scheduled for EGD today #3 - Contraceptive use: - Patient was counseled on contraception use; contraception options were discussed with the patient, patient says that she will investigate on her own - Recommend outpatient follow up with her ADMINISTRATIVE OFFICE SPECIALIST regarding contraception Thank you for this interesting consult, no further inpatient management from an ADMINISTRATIVE OFFICE SPECIALIST standpoint, Will sign off at this time. Please re-consult as necessary Patient was seen examined and discussed with attending physician Dr. Kana Allison DO PGY1 - Internal medicine electrical engineering intern <Patti Roger - Last Filed: 06/18/18 16:31> Objective - Vital Signs/Intake and Output Vital Signs (last 24 hours): Temp Pulse Resp BP Pulse Ox 98.1 F 85 20 109/72 100 06/18/18 15:00 06/18/18 15:00 06/18/18 15:00 06/18/18 15:00 06/18/18 15:00 Intake and Output: 06/18/18 06/18/18 06:59 18:59 Intake Total 50 Balance 50 - Medications Medications: Current Medications Diphenhydramine HCl (Benadryl) 25 mg IVP Q12H PRN PRN Reason: Allergy symptoms Methylergonovine Maleate (Methergine) 0.2 mg PO TID [facility] Last Admin: 06/18/18 14:00 Dose: 0.2 mg Ondansetron HCl (Zofran Inj) 4 mg IVP Q6H PRN PRN Reason: Nausea/Vomiting Pantoprazole Sodium (Protonix Inj) 40 mg IVP Q12H [facility] Last Admin: 06/18/18 06:49 Dose: 40 mg - Labs Labs: 06/18/18 07:15 06/18/18 07:15 PT 12.2 SECONDS (9.7-12.2) 06/15/18 17:50 INR 1.1 06/15/18 17:50 APTT 22 SECONDS (21-34) 06/15/18 17:50 Attending/Attestation - Attestation I have personally seen and examined this patient.: Yes I have fully participated in the care of the patient.: Yes I have reviewed all pertinent clinical information, including history, physical exam and plan: Yes Notes (Text): 06/18/18 16:20 Patient seen, evaluated and examined with the Resident. I agree with the documentation as above. In light of downward trend in quantitative HCG levels, the detection of which at 6 weeks post termination of is within normal limits, this is most likely not a . Patient is cleared from clinical trial manager perspective; and can proceed with proposed GI procedure. Patient is clinically stable. All else as above. Thank you for the pleasure of this consultation.
--- NOTE | 2018-06-18 10:41 | CP.PCM.PN ---
Subjective - Date & Time of Evaluation Date of Evaluation: 06/18/18 Time of Evaluation: 10:39 - Subjective Subjective: DR AMADOR SERVICE Pt s/e at bedside, complains of headache. Pt no longer noticing bleeding per vagina, denies acute events overnight, denies CP SOB FC NV. Denies any new black stools. Pt is pending upper EGD with Dr Carreon. Objective - Vital Signs/Intake and Output Vital Signs (last 24 hours): Temp Pulse Resp BP Pulse Ox 98.1 F 80 20 99/60 L 96 06/18/18 08:00 06/18/18 08:00 06/18/18 08:00 06/18/18 08:00 06/18/18 08:00 - Medications Medications: Current Medications Methylergonovine Maleate (Methergine) 0.2 mg PO TID [facility] Last Admin: 06/17/18 19:00 Dose: 0.2 mg Ondansetron HCl (Zofran Inj) 4 mg IVP Q6H PRN PRN Reason: Nausea/Vomiting Pantoprazole Sodium (Protonix Inj) 40 mg IVP Q12H [facility] Last Admin: 06/18/18 06:49 Dose: 40 mg - Labs Labs: 06/18/18 07:15 06/18/18 07:15 PT 12.2 SECONDS (9.7-12.2) 06/15/18 17:50 INR 1.1 06/15/18 17:50 APTT 22 SECONDS (21-34) 06/15/18 17:50 - Additional Findings Additional findings: - Constitutional Appears: Non-toxic, No Acute Distress - Head Exam Head Exam: NORMAL INSPECTION - Eye Exam Eye Exam: EOMI, Normal appearance - ENT Exam ENT Exam: Mucous Membranes Moist - Respiratory Exam Respiratory Exam: Clear to Ausculation Bilateral, NORMAL BREATHING PATTERN. absent: Rales, Rhonchi, Wheezes - Cardiovascular Exam Cardiovascular Exam: +S1, +S2 - GI/Abdominal Exam GI & Abdominal Exam: Soft, Normal Bowel Sounds - Extremities Exam Extremities Exam: Full ROM, Normal Inspection. absent: Calf Tenderness, Pedal Edema - Back Exam Back Exam: absent: CVA tenderness (L), CVA tenderness (R) - Neurological Exam Neurological Exam: Alert, Awake, Oriented x3 - Psychiatric Exam Psychiatric exam: Normal Affect, Normal Mood - Skin Skin Exam: Dry, Intact, Normal Color, Warm Assessment and Plan - Assessment and Plan (Free Text) Assessment: 28 y F w/ no PMhx presents for abd pain, low hgb s/p hemetamesis & hematochezia X 2 days, EGD postponed 2/2 + hcg, currently downtrending, per OBGYN not likely . Will repeat CBC today since hgb drop, will transfuse Prn w/ plan for EGD in AM by GI. Pt s/p elective 05/11 @ [facility] in [place]. Plan: GI bleed - Positive stool occult - Hgb 7.1 on admission; X 2 prbc hgb 10s - repeat CBC 9.9 hg - premedicate w/ benydral & tylenol - f/u GI recs - EGD postponed on 06/16 due to elevated beta hCG & pt refused light sedation - EGD 06/18 pending obgyn clearance - Dr Carreon notified is highly unlikely as per OBGYN, will contact anesthesia to reassess -c/w Protonix 40 IVP Q12H -c/w Zofran 4mg IVP Q6H PRN for nausea Elevated B-HCG, serum Possible retained products of conception vs new -Patient had termination of (possible D&E) May 10 done at [facility] in [place], [place] ([phone]) -reports having period 05/29 -BHCG 121 -> 90s -Pelvic US 06/16 - Heterogeneous appearance uterus, endometrial vascularity raises concerns for retained products of conception. -RETAIL LOAN ORIGINATOR ASSISTANT consult - Dr Alvarado - help is appreciated - nicole dunbar pregnacny - metherigine 0.2 TID - provide 3 days upon discharge Prophylactic measure -SCDs -Protonix 40 IVP Q12H -NPO Dispo: GI to perform EGD either today or tmrw pending OBGYN clearance. CK PGY1
[2018-06-18] MEDS: DiphenhydrAMINE 50 mg/ml Inj IVP PRN (18:06)
[2018-06-19 07:16] LABS: BASO % 0.3 % (0.0-2.0); EOS # 0.2 K/uL (0.0-0.7); EOS % 3.5 % (0.0-4.0); LYMPH % 29.1 % (20.0-40.0); MEAN CELL VOLUME 91.9 fL (81.0-99.0); MEAN CORPUSCULAR HEMOGLOBIN 31.9 pg (27.0-31.0); MEAN CORPUSCULAR HGB CONC 34.8 g/dL (33.0-37.0); MEAN PLATELET VOLUME 7.6 fL (7.2-11.7); MONO # 0.5 K/uL (0.0-0.8); MONO % 7.3 % (0.0-10.0); NEUT % 59.8 % (50.0-75.0); RBC 3.12 Mil/uL (3.80-5.20); RED CELL DISTRIBUTION WIDTH 14.3 % (11.5-14.5); WHITE BLOOD COUNT 6.7 K/uL (4.8-10.8)
[2018-06-19 07:38] LABS: ALB/GLOB RATIO 1.4 (1.0-2.1); ALBUMIN 3.4 g/dL (3.5-5.0); ALT/SGPT 20 U/L (9-52); AST/SGOT 20 U/L (14-36); BLOOD UREA NITROGEN 5 mg/dL (7-17); CALCIUM 8.9 mg/dl (8.6-10.4); GFR NON-AFRICAN AMERICAN > 60
[2018-06-19] MEDS ORDERED: Propofol 10 mg/ml Inj (20 ML) ONE (09:41)
[2018-06-19] MEDS ORDERED: Midazolam 2 MG/2 ML VIAL ONE (09:41)
[2018-06-19] MEDS ORDERED: Lidocaine Hydrochloride 5 ML INJ ONE (09:43)
[2018-06-19] MEDS ORDERED: Albuterol HFA 90 mcg/actuation (8 g) ONE (09:45)
[2018-06-19 10:06] VITALS: TEMP 98.4; O2SAT 100
[2018-06-19 10:40] VITALS: BP 106/55; PULSE 82; RESP 11
[2018-06-19] MEDS: DiphenhydrAMINE 50 mg/ml Inj IVP PRN (11:20)
--- NOTE | 2018-06-19 13:55 | CP.PCM.DIS ---
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 (3) GI bleed Status: Resolved (4) Symptomatic anemia Status: Resolved Hospital Course - Lab Results Lab Results: Most Recent Lab Values WBC 6.7 K/uL (4.8-10.8) 06/19/18 06:55 RBC 3.12 Mil/uL (3.80-5.20) L 06/19/18 06:55 Hgb 10.0 g/dL (11.0-16.0) L 06/19/18 06:55 Hct 28.7 % (34.0-47.0) L 06/19/18 06:55 MCV 91.9 fL (81.0-99.0) 06/19/18 06:55 MCH 31.9 pg (27.0-31.0) H 06/19/18 06:55 MCHC 34.8 g/dL (33.0-37.0) 06/19/18 06:55 RDW 14.3 % (11.5-14.5) 06/19/18 06:55 Plt Count 231 K/uL (130-400) 06/19/18 06:55 MPV 7.6 fL (7.2-11.7) 06/19/18 06:55 Neut % (Auto) 59.8 % (50.0-75.0) 06/19/18 06:55 Lymph % (Auto) 29.1 % (20.0-40.0) 06/19/18 06:55 Gosper % (Auto) 7.3 % (0.0-10.0) 06/19/18 06:55 Eos % (Auto) 3.5 % (0.0-4.0) 06/19/18 06:55 Baso % (Auto) 0.3 % (0.0-2.0) 06/19/18 06:55 Neut # (Auto) 4.0 K/uL (1.8-7.0) 06/19/18 06:55 Lymph # (Auto) 2.0 K/uL (1.0-4.3) 06/19/18 06:55 Gosper # (Auto) 0.5 K/uL (0.0-0.8) 06/19/18 06:55 Eos # (Auto) 0.2 K/uL (0.0-0.7) 06/19/18 06:55 Baso # (Auto) 0.0 K/uL (0.0-0.2) 06/19/18 06:55 Neutrophils % (Manual) 93 % (50-75) H 06/16/18 06:19 Lymphocytes % (Manual) 10 % (20-40) L 06/16/18 06:19 Monocytes % (Manual) 2 % (0-10) 06/16/18 06:19 Platelet Estimate Normal (NORMAL) 06/16/18 06:19 Hypochromasia (manual) Slight 06/16/18 06:19 Poikilocytosis (manual Slight 06/16/18 06:19 Anisocytosis (manual) Slight 06/16/18 06:19 PT 12.2 SECONDS (9.7-12.2) 06/15/18 17:50 INR 1.1 06/15/18 17:50 APTT 22 SECONDS (21-34) 06/15/18 17:50 Sodium 137 mmol/L (132-148) 06/19/18 06:55 Potassium 3.6 mmol/L (3.6-5.2) 06/19/18 06:55 Chloride 103 mmol/L (98-107) 06/19/18 06:55 Carbon Dioxide 28 mmol/L (22-30) 06/19/18 06:55 Anion Gap 10 (10-20) 06/19/18 06:55 BUN 5 mg/dL (7-17) L 06/19/18 06:55 Creatinine 0.9 mg/dL (0.7-1.2) 06/19/18 06:55 Est GFR ( Amer) > 60 06/19/18 06:55 Est GFR (Non-Af Amer) > 60 06/19/18 06:55 Random Glucose 91 mg/dL (65-105) 06/19/18 06:55 Calcium 8.9 mg/dl (8.6-10.4) 06/19/18 06:55 Phosphorus 4.4 mg/dL (2.5-4.5) 06/19/18 06:55 Magnesium 1.9 mg/dL (1.6-2.3) 06/19/18 06:55 Total Bilirubin 0.5 mg/dL (0.2-1.3) 06/19/18 06:55 AST 20 U/L (14-36) 06/19/18 06:55 ALT 20 U/L (9-52) 06/19/18 06:55 Alkaline Phosphatase 39 U/L (38-126) 06/19/18 06:55 Total Protein 5.8 g/dL (6.3-8.3) L 06/19/18 06:55 Albumin 3.4 g/dL (3.5-5.0) L 06/19/18 06:55 Globulin 2.4 gm/dL (2.2-3.9) 06/19/18 06:55 Albumin/Globulin Ratio 1.4 (1.0-2.1) 06/19/18 06:55 Beta HCG, Quant 96.21 mIU/ML 06/18/18 16:54 Urine HCG, Qual Positive (NEGATIVE) 06/18/18 06:33 Stool Occult Blood Positive (NEGATIVE) H 06/15/18 12:24 HIV 1&2 Antibody Screen Negative (NEGATIVE) 06/18/18 07:15 Blood Type O POSITIVE 06/15/18 14:16 Antibody Screen Negative 06/15/18 14:16 Discharge Exam - Head Exam Head Exam: ATRAUMATIC, NORMOCEPHALIC Discharge Plan - Discharge Medications Prescriptions: Ondansetron [Zofran] 4 mg PO Q8H PRN #21 tab PRN Reason: Nausea/Vomiting Pantoprazole Sodium [Protonix] 40 mg PO DAILY #14 ect - Follow Up Plan Condition: SERIOUS Disposition: HOME/ ROUTINE Instructions: Smoking: Not Just Harmful to Your Lungs and Heart, Gastrointestinal Bleeding (DC), Quitting Smoking Additional Instructions: Patient is to be discharged home on the following medication protonix 40mg daily by mouth for 14 days Please follow up with Dr Carreon you [employer] Professional within 7 days of discharge, call his office weds for biopsy results Please follow up with Dr Nam within 7 days of discharge take care and be well [facility] PGY1 Referrals: Zack Carreon [Staff Provider] - Rajendra Nam Jr., MD [Medical Doctor] -
[2018-06-20] MEDS ORDERED: Pneumococcal 23-Valent Vaccine IM ONE (10:00)
--- NOTE | 2018-06-22 07:27 | CON ---
DATE: 06/15/[address] Zack Ornelas to Dr. Nam. I was called for the GI consultation by the admitting MD. The patient is seen on the for GI consultation on 06/15/2018. The entire chart is reviewed including, but not limited to the most recent lab and radiology study results, current and the previous medication list, current and the previous medical events, allergy to medication list as well as all the available current and the previous medical records. Case was discussed immediately with the staff after my GI consultation on 06/15/2018. HISTORY OF PRESENT ILLNESS: This is a 30-year-old female, who was admitted to the hospital through the emergency room with the main complaint of generalized weakness and malaise with near syncopal episode, who reported nausea and vomiting more than once with trace of fresh blood. No reported actual chest pain, palpitation, or significant shortness of breath. On record, the patient had about two weeks ago as per her statement. PAST MEDICAL HISTORY: Including, but not limited to: 1. Bronchial asthma. 2. Status post . 3. A recent . FAMILY HISTORY: Unknown. SOCIAL HISTORY: Positive for alcohol intake. CURRENT MEDICATIONS: Both the admission medication lists were reviewed. ALLERGIES: ALLERGY TO MEDICATION LIST IS REVIEWED. After being admitted to the hospital, the patient was found to have hemoglobin of 7.1, hematocrit 21 initially. The patient also reported black tarry stool x 2 prior to her admission to the hospital. PHYSICAL EXAMINATION: GENERAL: A 30-year-old female, appears to be awake, alert, and oriented. VITAL SIGNS: Afebrile with stable vital signs at the time she was seen by me with respiratory rate of 18-20. HEENT: Pale, dry oral mucoid membranes, nonicteric sclerae. LYMPH NODES: No lymphadenitis or lymphadenopathy. LUNGS: Few scattered crepitation. Decreased air entry at bases. HEART: Positive S1 and S2. ABDOMEN: Soft with mild generalized tenderness. No mass or organomegaly and no rebound tenderness or guarding. Mid epigastric as well as midline abdominal tenderness is positive. RECTAL: The patient refused. EXTREMITIES: Without significant clubbing, cyanosis, or edema. NEUROLOGIC: No reported new neurological deficits, sensory or motor. IMPRESSION: 1. Anemia, most likely secondary to gastrointestinal bleeding, with melena associated with nausea and vomiting. 2. Status post recent . 3. Status post section by history. 4. Bronchial asthma by history. SUGGESTION: 1. Agree with your plan. 2. Blood transfusion, to keep hemoglobin above 10 g percent. 3. Proton pump inhibitors IV. 4. Endoscopic evaluation of the upper GI tract after full COUNTER HELPER evaluation and after obtaining serum test. 5. Further recommendations to follow and abdominal ultrasound as well as pelvic ultrasound to be ordered. Thank you for letting me participate in your patient's case management. Further recommendation to follow. Zack Ornelas MD
== END 2018-06-19 14:26 | disposition home or self-care (01) | DRG 174 ==
LOC: C.ER 09:09 → C.9E 14:06 → C.5S 16:59 → C.3T 06-18 11:43 → OBSVTOIN 06-18 16:57
PROVIDERS: ADMIT Internal Medicine; ATTEND Internal Medicine
PROC: 30233N1 Transfusion of Nonautologous Red Blood Cells into Peripheral Vein, Percutaneous Approach (ICD-10-PCS; 2018-06-18)
PROC: 0DB78ZX Excision of Stomach, Pylorus, Via Natural or Artificial Opening Endoscopic, Diagnostic (ICD-10-PCS; principal; 2018-06-19 09:35)
DX: K92.2 Gastrointestinal hemorrhage, unspecified (principal); O03.1 Delayed or excessive hemorrhage following incomplete spontaneous abortion; D50.0 Iron deficiency anemia secondary to blood loss (chronic); F17.210 Nicotine dependence, cigarettes, uncomplicated; J45.909 Unspecified asthma, uncomplicated; Z32.01 Encounter for pregnancy test, result positive; K44.9 Diaphragmatic hernia without obstruction or gangrene

== ENCOUNTER 2018-07-14 22:46 | Emergency (ER) | payer MEDICAID ==
[2018-07-14 22:47] VITALS: BMI 24.2
[2018-07-14 23:24] VITALS: BP 121/84; PULSE 102; RESP 22; TEMP 99.8; O2SAT 100
[2018-07-15 08:16] LABS: BASO # 0.1 K/uL (0.0-0.2); BASO % 0.6 % (0.0-2.0); EOS # 0.3 K/uL (0.0-0.7); EOS % 3.7 % (0.0-4.0); LYMPH # 1.2 K/uL (1.0-4.3); LYMPH % 13.3 % (20.0-40.0); MEAN CORPUSCULAR HEMOGLOBIN 29.2 pg (27.0-31.0); MEAN CORPUSCULAR HGB CONC 33.2 g/dL (33.0-37.0); MEAN PLATELET VOLUME 7.9 fL (7.2-11.7); MONO # 0.6 K/uL (0.0-0.8); MONO % 6.9 % (0.0-10.0); NEUT # 6.7 K/uL (1.8-7.0); NEUT % 75.5 % (50.0-75.0); RBC 4.12 Mil/uL (3.80-5.20); RED CELL DISTRIBUTION WIDTH 14.3 % (11.5-14.5); WHITE BLOOD COUNT 8.9 K/uL (4.8-10.8)
[2018-07-15 08:17] LABS: HEMOGLOBIN 12.1 g/dL (11.0-16.0); MEAN CELL VOLUME 88.2 fL (81.0-99.0)
[2018-07-15 09:25] LABS: URINE BILIRUBIN NEGATIVE (NEGATIVE); URINE CLARITY Hazy (Clear); URINE COLOR YELLOW (YELLOW); URINE GLUCOSE (UA) Normal (Normal)
[2018-07-15 09:26] LABS: SQUAMOUS EPITHIAL 7 /hpf (0-5); URINE BLOOD 3+ (NEGATIVE); URINE LEUKOCYTE ESTERASE 2+ Leu/uL (Negative); URINE PROTEIN NEGATIVE (NEGATIVE); URINE UROBILINOGEN Normal mg/dL (0.2-1.0)
[2018-07-15 09:27] LABS: HCG,QUALITATIVE URINE NEGATIVE (NEGATIVE); URINE BACTERIA OCC (<OCC)
[2018-07-15 10:48] LABS: BLOOD UREA NITROGEN 3 mg/dL (7-17); GFR NON-AFRICAN AMERICAN > 60
[2018-07-15 10:49] LABS: ALB/GLOB RATIO 1.2 (1.0-2.1); ALBUMIN 4.6 g/dL (3.5-5.0); ALT/SGPT 14 U/L (9-52); AST/SGOT 66 U/L (14-36); CALCIUM 9.1 mg/dl (8.6-10.4)
== END 2018-07-15 02:30 | disposition home or self-care (01) ==
LOC: C.ER 22:46
DX: J02.0 Streptococcal pharyngitis (principal)
CPT/HCPCS: 80053; 81001; 84703; 85025; 86850; 86900; 96361; 96365; 96375; 99281; J0696; J1885; J7030